=== PATIENT | male | born 1990 | race African-American/Black ===

== ENCOUNTER 2017-01-14 13:48 | Emergency (ER) | payer SELFPAY ==
[2017-01-14 14:04] VITALS: BP 147/71; PULSE 72; TEMP 98.6; BMI 24.4
--- NOTE | 2017-01-14 14:52 | PDOC ---
History of Present Illness - General Chief Complaint: Penile Drainage Stated Complaint: URINE PROBLEM Time Seen by Provider: 01/14/17 14:18 History Source: Patient Exam Limitations: No Limitations - History of Present Illness Travel History: No Initial Comments: 01/14/17 15:00 26-year-old male presents the ED with intermittent burning and urinary frequency for the past 3 days. Patient denies discharge, abdominal pain, flank pain, history of kidney stones, hematuria, or fever. Patient had a urinary tract infection a few months ago, she with antibiotics. Patient was also treated for STD since he was having unprotected sex with 2 other females. Patient O2 female also were checked 3 months ago but were negative for sexual transmitted diseases. Patient continues to have unprotected sex 53 meals but denies any positive findings Timing/Duration: reports: intermittent Quality: reports: mild, burning Abdominal Pain Onset Location: reports: other Pain Radiation: reports: no radiation Activities at Onset: reports: none Aggravating Factors: improves with: Movement, Voiding Alleviating Factors: improves with: None Past History - Past Medical History Allergies/Adverse Reactions: Allergies Allergy/AdvReac Type Severity Reaction Status Date / Time No Known Allergies Allergy Verified 01/14/17 14:04 Home Medications: Ambulatory Orders Ciprofloxacin [Cipro (Restricted To Id)] 250 mg PO BID #14 tablet 01/14/17 - Psycho/Social/Smoking Cessation Hx Suicidal Ideation: No Smoking History: Never smoked Have you smoked in the past 12 months: No Number of Cigarettes Smoked Daily: 0 Information on smoking cessation initiated: No Hx Alcohol Use: No Drug/Substance Use Hx: No Substance Use Type: None Patient Lives Alone: No Lives with/in: parents Review of Systems - Review of Systems Able to Perform ROS?: Yes Constitutional: No: Symptoms Reported HEENTM: No: Throat Pain Respiratory: No: Cough ABD/GI: No: Abdominal cramping : Yes: Dysuria, Frequency. No: Discharge, Flank Pain, Hematuria Musculoskeletal: No: Symptoms Reported Integumentary: No: Symptoms Reported Neurological: No: Symptoms reported Endocrine: No: Symptoms Reported *Physical Exam - Vital Signs Last Vital Signs Temp Pulse Resp BP Pulse Ox 98.6 F 72 18 147/71 98 01/14/17 14:01 01/14/17 14:01 01/14/17 14:01 01/14/17 14:01 01/14/17 14:01 - Physical Exam General Appearance: Yes: Nourished, Appropriately Dressed. No: Apparent Distress HEENT: positive: EOMI Neck: positive: Supple Cardiovascular: positive: Regular Rhythm, Regular Rate. negative: Murmur Gastrointestinal/Abdominal: positive: Soft. negative: Tenderness Male Genitalia: positive: normal genitalia (uncircumcised). negative: discharge , testicular tenderness, epididymus tender Integumentary: positive: Normal Color, Warm, Moist Neurologic: positive: Motor Strength 5/5 (ambulatory) Medical Decision Making - Medical Decision Making 01/14/17 15:02 Patient with urinary frequency and dysuria. Patient then had no acute clinical findings. Patient ordered for urinalysis urine culture and GC with chlamydia. 01/14/17 15:46 Laboratory Tests 01/14/17 14:22 Urine Protein 2+ H Urine Nitrite Negative Ur Leukocyte Esterase Trace H Urine WBC 10 Pt will be covered for gc/chlamydia. Pt's previous std testing was -. At this point pt needs to be seen by a urologist due to frequent uti and concern for other etiologies. Pt will be given an rx for cipro *DC/Admit/Observation/Transfer Diagnosis at time of Disposition: Urinary tract infection Qualifiers: Urinary tract infection type: acute cystitis Hematuria presence: without hematuria Qualified Code(s): N30.00 - Acute cystitis without hematuria - Discharge Dispostion Disposition: HOME Condition at time of disposition: Good - Prescriptions Prescriptions: Ciprofloxacin [Cipro (Restricted To Id)] 250 mg PO BID #14 tablet - Referrals Referrals: Alicia Nelson [Primary Care Provider] - Damon Mcdonnell MD [Staff Physician] - - Patient Instructions Printed Discharge Instructions: DI for Urinary Tract Infection (UTI), Facts About Sexually Transmitted Infections Additional Instructions: Please take antibiotics until completed. Follow up with urologist. Avoid intercourse x 1 week and call [phone] for results of STD testing
[2017-01-14 14:56] LABS: URINE APPEARANCE CLEAR; URINE BILIRUBIN NEGATIVE (NEGATIVE); URINE BLOOD NEGATIVE (NEGATIVE); URINE COLOR YELLOW; URINE GLUCOSE (UA) NEGATIVE (NEGATIVE); URINE KETONE NEGATIVE (NEGATIVE); URINE NITRITE NEGATIVE (NEGATIVE); URINE UROBILINOGEN 4.0 E.U/dl E.U./dl (0.2-1.0)
[2017-01-14 15:02] LABS: URINE LEUK ESTERASE TRACE (NEGATIVE); URINE PROTEIN 2+ (NEGATIVE)
[2017-01-14 15:07] LABS: URINE MUCUS FEW; URINE RBC 4 /hpf (0-3); URINE WBC 10 /hpf (3-5)
[2017-01-14] MEDS ORDERED: AZITHROMYCIN 1 GM PACKET PO ONE (15:44)
[2017-01-14] MEDS ORDERED: AZITHROMYCIN 1 GM PACKET ONE (16:01)
== END 2017-01-14 16:10 | disposition home or self-care (01) ==
LOC: JERFT 13:48
PROC: 3E0233Z Introduction of Anti-inflammatory into Muscle, Percutaneous Approach (ICD-10-PCS; principal; 2017-01-14)
DX: N30.00 Acute cystitis without hematuria (principal)
CPT/HCPCS: 36415; 81003; 81015; 87086; 87491; 87591; 99281-25